=== PATIENT | male | born 1995 | race Caucasian/White ===

== ENCOUNTER 2018-01-30 18:42 | Emergency (ER) | payer BC, SELFPAY ==
[2018-01-30] MEDS ORDERED: Ibuprofen 800 MG TAB ONE (19:11)
--- NOTE | 2018-01-30 20:18 | RAD ---
RIGHT KNEE FOUR VIEWS: 01/30/18 HISTORY: 22-year-old male with history of right knee pain after stepping off a sidewalk and twisting his knee. COMPARISON: 09/22/14. FINDINGS: No fracture, dislocation, or other significant acute osseous abnormality. IMPRESSION: Unremarkable right knee. POS: [facility]
== END 2018-01-30 22:15 | disposition home or self-care (01) ==
LOC: ERS 18:42
DX: M25.561 Pain in right knee (principal); F17.210 Nicotine dependence, cigarettes, uncomplicated; X50.1XXA Overexertion from prolonged static or awkward postures, initial encounter

== ENCOUNTER 2019-01-08 21:19 | Emergency (ER) | payer BC, SELFPAY ==
[2019-01-08] MEDS ORDERED: Ketorolac Tromethamine 60 MG/2 ML VIAL ONE (21:26)
--- NOTE | 2019-01-08 23:00 | RAD ---
THREE VIEWS LEFT THUMB: 01/08/19 HISTORY: Left thumb injury. FINDINGS: There is no evidence of a fracture, dislocation, or other osseous abnormality involving the left thum b. IMPRESSION: No acute osseous abnormality. POS: [facility]
== END 2019-01-08 22:50 | disposition home or self-care (01) ==
LOC: ERS 21:19
DX: S63.642A Sprain of metacarpophalangeal joint of left thumb, initial encounter (principal); F17.210 Nicotine dependence, cigarettes, uncomplicated; X50.9XXA Other and unspecified overexertion or strenuous movements or postures, initial encounter
CPT/HCPCS: 29125; 96372; J1885

== ENCOUNTER 2019-02-09 23:44 | Emergency (ER) | payer SELFPAY ==
[2019-02-10] MEDS ORDERED: Meclizine HCl 25 MG TAB ONE (02:13)
== END 2019-02-10 02:33 | disposition home or self-care (01) ==
LOC: ERS 23:44
DX: R42 Dizziness and giddiness (principal); F17.210 Nicotine dependence, cigarettes, uncomplicated
CPT/HCPCS: 99283; J8499